=== PATIENT | male | born 1950 | race Caucasian/White ===

== ENCOUNTER 2025-06-09 08:10 | Observation (INO) ==
--- NOTE | 2025-05-13 16:07 | PAT Medication Instructions ---
Medication Instructions Date of Service May 13, 2025 Home Medications ascorbic acid (vitamin C) 1,000 mg tablet (Vitamin C) 1,000 mg PO QAM cholecalciferol (vitamin D3) 125 mcg (5,000 unit) tablet (Vitamin D3) 125 mcg PO QAM fexofenadine 180 mg tablet 180 mg PO DAILY PRN allergy relief furosemide 20 mg tablet 20 mg PO QAM rosuvastatin 10 mg tablet 10 mg PO QAM DO NOT take the morning of surgery ascorbic acid (vitamin C) 1,000 mg tablet (Vitamin C) 1,000 mg PO QAM cholecalciferol (vitamin D3) 125 mcg (5,000 unit) tablet (Vitamin D3) 125 mcg PO QAM fexofenadine 180 mg tablet 180 mg PO DAILY PRN allergy relief furosemide 20 mg tablet 20 mg PO QAM Take morning of surgery With a small sip of water, OTHERWISE NOTHING TO EAT OR DRINK AFTER MIDNIGHT: rosuvastatin 10 mg tablet 10 mg PO QAM Other Notes If you have any questions please call us at [phone] or [phone] or [phone] or [phone]
--- NOTE | 2025-05-22 10:06 | Anesthesiology Consultation ---
Date of Service May 22, 2025 Assessment & Plan (1) Encounter for pre-operative examination: - awaiting PCP clearance response to optimization form regarding noted clubbing of fingers, end expiratory wheezing, and small pleural effusion on imaging. I contacted patient and his answered (listed as contact and was with patient at appointment today). She clarified he sees [facility] primary care. Optimization form and PAT testing to be faxed to their office. I contacted PCP office who confirmed he is a patient of Dr. Driver, they were made aware of abnormal CXR findings and she will notify provider. Patient's made aware as well. Surgeon's office made aware. Chart Review Chart Review: Pending: Refer to Additional Notes / Consult section and Patient seen in Pre Admission Testing Teaching & Discussion Pre-Anesthesia Teaching/Discussion Notes: Instructed NPO after midnight before surgery, except medications with 15 cc of water. Medication instructions provided according to the PAT guidelines. History Surgery Operation Date: 06/09/25 10:40 Proposed Procedures p Left Total Knee Arthroplasty - Oniel Bruno MD Height/Weight Height: 5 ft 10 in Weight: 97 kg Allergies Allergy/AdvReac Type Severity Reaction Status Date / Time No Known Allergies Allergy Verified 05/13/25 15:30 Medications Home Medications Medication Instructions Recorded Confirmed Last Taken ascorbic acid (vitamin C) 1,000 mg 1,000 mg PO QAM 05/13/25 05/13/25 Unknown tablet (Vitamin C) cholecalciferol (vitamin D3) 125 125 mcg PO QAM 05/13/25 05/13/25 Unknown mcg (5,000 unit) tablet (Vitamin D3) fexofenadine 180 mg tablet 180 mg PO DAILY PRN allergy relief 05/13/25 05/13/25 Unknown furosemide 20 mg tablet 20 mg PO QAM 05/13/25 05/13/25 Unknown rosuvastatin 10 mg tablet 10 mg PO QAM 05/13/25 05/13/25 Unknown Past Medical History Medical History Arthritis Hyperlipidemia Swelling of lower leg reason for lasix daily Patient denies h/o stroke, seizures, heart attack, heart failure, DM, HTN, blood clots/DVTs or blood transfusions. Exercise / Class Metabolic Activity II 4-5 Yardwork/Stairs/Walk up hill (denies chest discomfort or shortness of breath walking up one flight of stairs) Past Family History Family History Other No family history of adverse response to anesthesia Past Surgical History Surgical History H/O vein stripping (2004) right leg History of colonoscopy Hx of vasectomy [place] teeth removed Past Anesthesia History No Hx of Anesthesia Complications and No Family Hx of Anesthesia Complications History of PONV No Hx of PONV and No Hx of Motion Sickness Social History Smoking Status: Current every day smoker (-advised) Smoking cigarettes per day: 10-12 cig daily Do You Dip or Chew Tobacco: No Hx Alcohol Use: Yes Alcohol type: beer alcohol intake frequency: other (2-3 beers once weekly) substance use type: does not use Review of Systems Snoring, denies witnessed apneas. Patient denies chest pain, shortness of breath, dyspnea on exertion, reflux, fever, chills, cough, wheezing, or palpitations. Physical Exam Vital Signs Vitals BP 129/78 P 87 TEMP 98.5 SP02 97% on RA RESP 18 Physical Patient resting comfortably in chair in no acute distress, alert and oriented, responding appropriately throughout visit Full cervical extension range of motion without pain TMD 3.5 finger breadths Mallampati Score 2 Dentition: lower front dental implants; denies chipped or loose teeth, caps/crowns, or bridges Lungs: normal respiratory effort. Good air movement, mild end expiratory wheezing, no rales or rhonchi; clubbing of fingers Cardiac: regular rate and rhythm, no murmurs noted Carotid arteries: negative bruit bilat Lab Results Anesthesia Preop Results Results Anesthesia Widget: WBC 9.04 K/ul (4.8-10.8) 05/22/25 Hgb 15.0 g/dl (14.0-18.0) 05/22/25 Hct 45.7 % (42.0-52.0) 05/22/25 Plt 360 K/uL (130-400) 05/22/25 Na 141 mmol/L (136-145) 05/22/25 K 4.6 mmol/L (3.5-5.1) 05/22/25 Cl 101 mmol/L (98-107) 05/22/25 CO2 32 mmol/L (21-32) 05/22/25 BUN 13 mg/dl (6-23) 05/22/25 Creat 0.96 mg/dl (0.6-1.4) 05/22/25 Glucose Level 89 mg/dl (70-99(Fasting)) 05/22/25 PT 10.9 Seconds (9.0-12.0) 05/22/25 PTT 29 Seconds (21-31) 05/22/25 INR 1.0 (0.9-1.1) 05/22/25 Blood Type O Positive 05/22/25 Antibody Screen NEGATIVE 05/22/25 Testing Electrocardiogram Date: 05/22/25 Sinus rhythm with 1st degree AV block, rate 96 bpm Left axis deviation Chest X-Ray Date: 05/22/25 No prior studies are available for comparison at the time of dictation. The cardiomediastinal silhouette is top normal for projection. No definite atherosclerotic calcification of the thoracic aorta. There is a small left pleural effusion with left basilar consolidation. The right lung appears clear noting dependent atelectasis. There is no pneumothorax. The skeletal structures are osteopenic. There are age-indeterminate left-sided rib fractures. Degenerative change is seen in the spine. IMPRESSION: 1. Small left pleural effusion with left basilar consolidation. Radiographic follow-up to resolution is recommended. 2. There are several age indeterminate left-sided rib fractures. Correlate clinically.
[~2025-06-09 08:10] MED LIST: BUPIVACAINE 0.5 % 5 MG/1 ML PF 10ML VIAL ONE; ROPIVACAINE 0.5% 5 MG/ML 30 ML VIAL ONE
--- NOTE | 2025-06-09 08:46 | History & Physical Bridge Note ---
Date of Service June 09, 2025 History & Physical Bridge Note I have examined the patient, reviewed the History & Physical and in the interval since the performance of the History & Physical I have noted the following changes of clinical significance: no changes noted
[2025-06-09] MEDS: METOCLOPRAMIDE HCL 10 MG TABLET PO SCH (08:56)
[2025-06-09] MEDS: CeleBREX 200 MG CAP PO SCH (08:56)
[2025-06-09] MEDS: ACETAMINOPHEN 500 MG TAB PO SCH ×2 (08:56→15:56)
[2025-06-09] MEDS: FAMOTIDINE 20 MG TAB PO SCH (08:56)
[2025-06-09] MEDS: dexAMETHasone**PF** 10 MG/ML VIAL IV SCH (08:56)
[2025-06-09] MEDS: LR 60ML/HR IV SCH (08:57)
[2025-06-09] MEDS: LR 500ML BOLUS, THEN 15ML/HR IV SCH (08:57)
[2025-06-09] MEDS ORDERED: MIDAZOLAM HCL 1 MG/ML 2ML VIAL ONE (09:24)
[2025-06-09] MEDS ORDERED: ONDANSETRON INJ 2 MG/ML 2 ML VIAL IV PRN ×2 (10:06→14:28)
[2025-06-09] MEDS ORDERED: ATROPINE SULFATE 0.1 MG/ML 10ML SYR IV PRN (10:06)
[2025-06-09] MEDS: ROPIV 0.5% 246mg, Ketorolac 30mg, EPINEPHrine 0.5mg in NSS INFIL SCH (11:57)
[2025-06-09] MEDS: ORTHO JOINT ANESTHETIC ONE (11:58)
[2025-06-09] MEDS ORDERED: PROPOFOL IV EMULSION 10 MG/ML 20 ML VIAL IV ONE (12:55)
[2025-06-09] MEDS ORDERED: PHENYLEPHRINE 100MCG/ML 5ML SYR ONE (12:55)
--- NOTE | 2025-06-09 13:23 | Operative Report ---
PG Post Operative Report Pre & Post Diagnosis Operation Date: 06/09/25 10:40 Pre-Op Diagnosis: Left Knee Osteoarthritis Post-Op Diagnosis: Left Knee Osteoarthritis I identified the patient and participated in the time-out.: Yes Procedure Operation Date: 06/09/25 10:40 Actual Procedures p Left Total Knee Arthroplasty(Left) - Oniel Bruno MD Surgeon Oniel Bruno MD Production Operator Rodo Weiss PA-C Estimated Blood Loss 50 Findings Consistent with Post-Op Diagnosis Operative findings of advanced left knee medial compartment DJD. He extensive grade 4 [id number] disease in the medial compartment of his knee. The rest of his knee was fairly well-preserved with some mild degenerative changes. He had a varus deformity to his knee with a moderate-sized knee effusion. Osteophytes primarily medially. Specimens Left knee sent for pathology. Anesthesia Type Spinal MAC Complications none Disposition Accompanied Patient To Recovery: No Indications Patient is [id number] gentleman has had a several year history of increasing bilateral knee pain discomfort the left side bit worse than the right. Failed conservative measures. X-rays show advanced medial compartment arthritis. He would like to proceed with surgical treatment. Description of Procedure Operative implants consist of: 1 Biomet Vanguard size 67.5 left posterior stabilized femoral component. 2. Biomet size 79 tibial tray. 3. 10 mm posterior stabilized polyethylene insert. 4. 34 x 8 All poly patella. The patient was taken to the op room, identified, placed on the operating table in the supine position. All contact areas were appropriately padded. IV antibiotics were provided by anesthesia team. A spinal anesthetic and adductor canal block had been bided in the holding area. A left phytate was then placed. The left lower extremity was then prepped and draped in usual sterile fashion. The left leg was elevated exsanguinated with use of an Esmarch and a tourniquet placed at 300 mmHg. An anterior approach to the left knee was then performed through a longitudinal incision centered over the patella. Sharp dissection was Through subcutaneous tissue down to the extensor mechanism. A medial parapatellar arthrotomy incision was made. Some subperiosteal dissection was carried out medially. The fat pad was resected from his patella tendon. The lateral patellofemoral ligament was released. Patella subluxate laterally and the knee was flexed. The osteophytes taken off distal femur. The ACL and PCL were then released from distal femur the tibia subluxated anteriorly. The external tibial alignment jig was then placed on the anterior face of the tibia and adjusted 14 mm medially. The proximal tibial cut was made to take about a millimeter bone at most from the most deficient aspect medial tibial plateau. Some osteophytes were taken off medially. The tibia sized to a size 79. Attention then drawn the femur. The distal femur was under sharp drill. Intramedullary canal was suction. A left 6 degree valgus cutting guide was placed. Distal femoral cutting block was pinned in place. The distal femoral cut was made to take an additional 3 mm of bone off distal femur. The femur was then sized to a size 67.5. This femur was fairly wide in relation to the AP dimensions. The AP cutting block was pinned parallel to the epicondylar axis which was 4 degrees of external rotation. The anterior cut, anterior chamfer, posterior cut, posterior chamfer cuts were made. Box cutting guide was placed and adjusted slightly laterally. The box cut was made. Then remnants of the medial and lateral menisci were excised. The osteophytes taken off the posterior aspect of the femur. Trial femoral component was placed. Tibial tray was then pinned in Ade external rotation and the drill and stem punch were used to create defect in the proximal tibia for the tibial tray. The knee was then trialed and the 10 mm insert fit most appropriately. Attention drawn the patella. The patella was cleaned of all soft tissue. Patella thickness measured 25 mm in thickness was cut down to 15. Was sized to a size 34 patella. The lug holes for the 34 patella were then placed. The lateral osteophyte was removed. Patella button was placed. Knee was taken through range of motion patella tracked nicely with no thumbs test. Attention was then drawn to placement permanent components. All trial components were removed. Bone plug was placed into distal femoral limit blood loss. Double batch [place] G cement was mixed. A Biomet Vanguard size 67.5 left posterior stabilized femoral component, size 79 tibial tray, a 10 mm Po stabilized polyethylene insert, and a 34 x 8-1/2 all poly patella then cemented in place. The knee was brought out into full extension till cement hardened. A final cement check was then performed. The pericapsular tissues were injected with a total of 100 cc of Ortho mix. The patient did receive 1 g of tranexamic acid. The tourniquet was then let down for final tourniquet time of 62 minutes. Hemostasis assured with electrocautery. Extensor Meclomen then closed combination of 1 PDS suture #1 Vicryl suture in a [id number] fashion. Extensor Meclomen checked found to be intact. Subcutaneous tissue then closed with 2-0 Dexon suture in a buried interrupted fashion skin was closed skin emmy. Leg was then cleaned and dried and a sterile dressing with Xeroform, 4 fours, sterile cast padding, Law bandage were applied. The patient then transferred to the recovery room in stable condition. Patient tolerated the procedure well and there were no complications. Rodo Weiss, my physician news assistant, was present for the entire procedure. His assistance was essential and required for appropriate patient positioning, prepping and draping, surgical exposure, performing the technical details of the operation, placement the implants, closure of the wound, and placement of the sterile bandage. I attest to the content of the Intraoperative Record and any orders documented therein. Any exceptions are noted below.
--- NOTE | 2025-06-09 13:53 | XRay Report ---
XR knee LT 1 or 2V routine CLINICAL HISTORY: Surgical Post Op COMPARISON: None FINDINGS: There are postsurgical changes of a total left knee arthroplasty and patellar resurfacing. There is gas present within the soft tissues consistent with recent surgery. There are overlying ski n emmy. There is a lateralized position of the femoral component. IMPRESSION: 1. Postsurgical changes of a total left knee arthroplasty. ACT 112: Negative or not required by law. Electronically signed by: Claudio Colon M.D. 06/09/2025 1:50 PM
[2025-06-09] MEDS ORDERED: MAGNESIUM HYDROXIDE SUSP 30 ML UDC PO PRN (14:28)
[2025-06-09] MEDS ORDERED: NALOXONE HCL 0.4 MG/1 ML VIAL/CARP IV PRN (14:28)
[2025-06-09] MEDS ORDERED: HYDROmorphone INJ 0.5 MG/0.5 ML SYR IV PRN (14:28)
[2025-06-09] MEDS ORDERED: ALUMINUM/MAGNESIUM SUSP 30 ML UDC PO PRN (14:28)
[2025-06-09] MEDS ORDERED: METOCLOPRAMIDE HCL INJ 5 MG/ML 2 ML VIAL IV PRN (14:28)
[2025-06-09] MEDS ORDERED: FEXOFENADINE HCL 180 MG TAB PO PRN (14:28)
--- NOTE | 2025-06-09 14:55 | Anesthesiology Progress Note ---
Date of Service June 09, 2025 Anesthesia Post Procedure Vital Signs Vital Signs: Temp Pulse Resp BP BP Pulse Ox O2 Del Method 06/09/25 14:49 97.5 F L 86 14 127/78 93 Room Air 06/09/25 14:35 97.3 F L 85 16 113/61 95 Room Air 06/09/25 14:00 88 17 114/83 93 Room Air 06/09/25 13:50 97.5 F L 93 H 16 100/70 93 Room Air 06/09/25 13:40 94 H 16 100/62 94 Room Air 06/09/25 13:30 95 H 15 84/54 L 93 Room Air 06/09/25 13:21 97.0 F L 97 H 18 84/49 L 97 Oxymask 06/09/25 08:46 97.7 F 90 20 122/81 95 Room Air O2 Flow Rate 06/09/25 14:49 06/09/25 14:35 06/09/25 14:00 06/09/25 13:50 06/09/25 13:40 06/09/25 13:30 06/09/25 13:21 10 06/09/25 08:46 Transfer of Care Handoff Completed per policy Notes Mental Status: alert / awake / arousable and participated in evaluation Patient Amnestic to Procedure: Yes Nausea / Vomiting: adequately controlled Pain: adequately controlled Airway Patency, RR, SpO2: stable & adequate BP & HR: stable & adequate Hydration State: stable & adequate Neuraxial Anesthesia: was administered and sensory block is resolving Anesthetic Complications: no major complications apparent and Pt Satisfied with anesthetic care
[2025-06-09] MEDS: KETOROLAC TROMETHAMINE 15 MG/ML VIAL IV SCH (15:56)
[2025-06-09] MEDS: ASCORBIC ACID 500 MG TAB PO SCH (15:56)
[2025-06-09] MEDS: SODIUM CHLORIDE 0.9% 1,000 ML IV SCH (15:57)
[2025-06-09] MEDS: TRANEXAMIC ACID / 0.7% NACL 1,000 MG/100 ML BAG IV SCH (19:53)
[2025-06-09] MEDS: ASPIRIN 81 MG ECTAB PO SCH (20:14)
[2025-06-09] MEDS ORDERED: SENNA 8.6 MG TAB PO SCH (21:00)
[2025-06-09] MEDS: DOCUSATE SODIUM 100 MG CAP PO SCH (21:00)
[2025-06-09] MEDS: SENNA 8.6 MG TAB PO SCH (21:00)
[2025-06-10 03:48] VITALS: O2SAT 96
[2025-06-10 07:29] VITALS: BP 137/70; PULSE 77; RESP 18; TEMP 98.1
--- NOTE | 2025-06-10 08:18 | Orthopedic Progress Note ---
Date of Service June 10, 2025 Assessment & Plan (1) Status post total left knee replacement: * Continue Current Treatment * Disposition: Home * Daily treatment: Physical Therapy/ Occupational Therapy per protocol * Weight bearing status: WBAT * Continue to monitor for ABLA * Pain control * DVT prophylaxis, ASA * Office/hospital f/u 2 weeks for progress check and staple/suture removal * Plan for discharge today pending PT/OT clearance Subjective .Active Problems: S/p left TKA POD 1 74y/o male s/p left TKA. Doing well overall, pain managed and improved function. Denies fever/chills, chest pain/SOB, nausea/vomiting. Otherwise no complaints. Review of Systems All systems reviewed & are unremarkable except as noted in HPI & below. Physical Exam . * General: Alert and oriented, no acute distress * Constitutional: well-developed, well-nourished. * Respiratory: Normal respiratory effort, no distress * Gastrointestinal: No tenderness to palpation, no rigidity or guarding. * Skin: No rash or lesion. * Neurologic: Grossly normal * Musculoskeletal: Left knee surgical dressing CDI, not removed for exam. Otherwise no obvious deformity or overlying skin changes RLE. Diffuse TTP distal thigh and knee region. Otherwise no specific tenderness of proximal thigh, lower leg, foot/ankle. AROM knee flexion 90 degrees. AROM foot/ankle intact. Sensation intact plantar/dorsal foot. Brisk capillary refill. Results & Data Results & Data Laboratory Results . Diagnostic Findings . Knee X-Ray 06/09/25 13:16 XR knee LT 1 or 2V routine CLINICAL HISTORY: Surgical Post Op COMPARISON: None FINDINGS: There are postsurgical changes of a total left knee arthroplasty and patellar resurfacing. There is gas present within the soft tissues consistent with recent surgery. There are overlying skin emmy. There is a lateralized position of the femoral component. IMPRESSION: 1. Postsurgical changes of a total left knee arthroplasty. ACT 112: Negative or not required by law. Electronically signed by: Claudio Colon M.D. 06/09/2025 1:50 PM PG Care Time/CCT Total # of Minutes Spent Total Time Spent with Patient: Total time spent is greater than 50% in coordination of care (as documented) at patient's floor/unit and/or counseling patient: Coding Level of Care Code 38231 Post Operative Follow-Up Diagnoses Status post total left knee replacement Z96.652
[2025-06-10] MEDS: TAMSULOSIN HCL 0.4 MG CAP PO SCH (09:20)
[2025-06-10] MEDS: FUROSEMIDE 20 MG TAB PO SCH (09:21)
[2025-06-10] MEDS: MULTIVITAMIN TAB PO SCH (09:22)
[2025-06-10] MEDS: CHOLECALCIFEROL 125 MCG (5,000 UNITS) TAB PO SCH (09:22)
[2025-06-10] MEDS: ROSUVASTATIN CALCIUM 10 MG TAB PO SCH (09:22)
[2025-06-10] MEDS: dexAMETHasone 10 MG in SYRINGE 0 ML IV SCH (09:23)
[2025-06-10] MEDS: NICOTINE 14 MG/24 HR PATCH TD SCH (09:26)
[2025-06-10] MEDS: REMOVE NICODERM PATCH SCH (09:26)
[2025-06-10 10:09] LABS: Hematocrit (blood only) 36.8 % (42.0-52.0); Hemoglobin 12.7 g/dL (14.0-18.0); Mean Corpuscular Hemoglobin 29.9 pg (25.0-34.0); Mean Corpuscular Volume 86.6 fL (80.0-100.0); Platelet Count 284 K/uL (130-400); RDW Standard Deviation 46.5 fL (36.4-46.3); Red Blood Count 4.25 M/uL (4.70-6.10); White Blood Count 14.55 K/ul (4.8-10.8)
[2025-06-10 10:23] LABS: Anion Gap 11.0 (3-11); Blood Urea Nitrogen 15.0 mg/dl (6-23); Calcium 9.0 mg/dl (8.6-10.3); Carbon Dioxide 26.0 mmol/L (21-32); Chloride 101.0 mmol/L (98-107); Creatinine Clr Calc Pharmacy 79.4 ml/min; Glucose 218.0 mg/dl (70-99(Fasting)); Potassium 4.1 mmol/L (3.5-5.1); Sodium 138.0 mmol/L (136-145)
== END 2025-06-10 10:05 | disposition home health service (06) ==
LOC: ASU 08:10 → 3W 08:10